=== PATIENT | female | born 2000 | race African-American/Black ===

== ENCOUNTER 2025-03-22 11:24 | Emergency (ER) | payer OTHER, SELFPAY ==
[~2025-03-22] VITALS: Ht 160 cm; Wt 67.3 kg
[2025-03-22] MEDS ORDERED: AMIT10TA11 PO (11:43)
[2025-03-22] MEDS ORDERED: SUMA100T2 PO (11:43)
[2025-03-22] MEDS ORDERED: HYDR-643 PO (11:43)
[2025-03-22] MEDS ORDERED: HOME MED LIST COMPLETE! XX SCH (12:25)
[2025-03-22] MEDS: NS (Normal Saline) 0.9% 1,000 ML IV ONE (12:40)
[2025-03-22] MEDS: KETOROLAC 30 MG/ML 1 ML VIAL IV ONE (12:42)
[2025-03-22] MEDS: ACETAMINOPHEN 500 MG TAB PO ONE (12:42)
[2025-03-22] MEDS: diphenhydrAMINE 50 MG/ML VIAL IV ONE (12:43)
[2025-03-22 12:44] LABS: BASO # 0.0 10^3/uL (0.0-0.2); BASO % 0.5 % (0.0-1.0); EOS # 0.0 10^3/uL (0.0-0.5); EOS % 1.0 % (0.0-3.0); LYMPH # 1.1 10^3/uL (1.5-5.0); LYMPH % 26.6 % (24.0-44.0); MONO # 0.4 10^3/uL (0.0-0.8); MONO % 9.2 % (2.0-8.0); NEUTROPHILS # 2.5 10^3/uL (1.5-8.5); NEUTROPHILS % 62.5 % (36.0-66.0); PLATELET COUNT, AUTOMATED 300 10^3/uL (150-450)
[2025-03-22 13:10] LABS: CALCIUM LEVEL 9.5 MG/DL (8.5-10.1); CARBON DIOXIDE LEVEL 28 MMOL/L (20-31); CHLORIDE LEVEL 105 MMOL/L (98-107); CREATININE FOR GFR 0.86 MG/DL (0.55-1.30); GLOMERULAR FILTRATION RATE > 90.0 (>60); MAGNESIUM LEVEL 1.9 MG/DL (1.8-2.4); POTASSIUM SERUM 4.1 MMOL/L (3.5-5.1); SODIUM LEVEL 142 MMOL/L (136-145)
[2025-03-22 13:12] LABS: FREE T4 0.95 NG/DL (0.89-1.76)
[2025-03-22 13:33] LABS: HCG, SERUM QUALITATIVE NEGATIVE (NEGATIVE)
[2025-03-22 14:05] VITALS: BP 103/60; TEMP 97; O2SAT 99
== END 2025-03-22 15:00 | disposition home or self-care (01) ==
LOC: M ED 11:24
DX: E16.2 Hypoglycemia, unspecified (principal); R55 Syncope and collapse; G43.909 Migraine, unspecified, not intractable, without status migrainosus
CPT/HCPCS: 70450; 73110; 80048; 83735; 84439; 84443; 84703; 85025; 93005; 96361; 96374; 96375; 99284; J1200; J1885; J2765

== ENCOUNTER 2025-03-27 10:59 | Inpatient (IN) | payer OTHER, SELFPAY ==
[~2025-03-27] VITALS: Ht 157.5 cm; Wt 66.8 kg
[~2025-03-27 10:59] MED LIST: AMIT10TA11 PO; HYDR-643 PO; SUMA100T2 PO
[2025-03-27 11:41] LABS: PLATELET COUNT, AUTOMATED 294 10^3/uL (150-450)
[2025-03-27 12:04] LABS: ETHYL ALCOHOL (ETHANOL) 0.004 % (0.000-0.010)
[2025-03-27 12:06] LABS: ALT/SGPT 19 U/L (7.0-40); AST/SGOT 24 U/L (<34); CALCIUM LEVEL 9.6 MG/DL (8.5-10.1); CARBON DIOXIDE LEVEL 28 MMOL/L (20-31); CHLORIDE LEVEL 103 MMOL/L (98-107); CREATININE FOR GFR 0.81 MG/DL (0.55-1.30); GLOMERULAR FILTRATION RATE > 90.0 (>60); POTASSIUM SERUM 3.9 MMOL/L (3.5-5.1); SALICYLATE LEVEL < 3.0 MG/DL (<30); SODIUM LEVEL 140 MMOL/L (136-145)
[2025-03-27 12:14] LABS: AMPHETAMINES LEVEL URINE NEGATIVE (NEGATIVE)
[2025-03-27 12:15] LABS: BARBITURATES URINE NEGATIVE (NEGATIVE); BENZODIAZEPINES URINE NEGATIVE (NEGATIVE); CANNABINOIDS URINE NEGATIVE (NEGATIVE); COCAINE METABOLITE URINE NEGATIVE (NEGATIVE); METHADONE URINE NEGATIVE (NEGATIVE); OPIATES URINE NEGATIVE (NEGATIVE); PHENCYCLIDINE URINE NEGATIVE (NEGATIVE)
[2025-03-27 12:21] LABS: HCG, SERUM QUALITATIVE NEGATIVE (NEGATIVE)
[2025-03-27] MEDS ORDERED: IBUP1TAB6 PO (12:47)
[2025-03-27] MEDS ORDERED: HOME MED LIST COMPLETE! XX SCH (12:50)
[2025-03-27] MEDS: IBUPROFEN 600 MG TAB PO ONE (13:35)
[2025-03-27] MEDS ORDERED: IBUPROFEN 400 MG TAB PO PRN (14:30)
[2025-03-27] MEDS ORDERED: MAALOX 30 ML SUSP *UDC PO PRN (14:30)
[2025-03-27] MEDS ORDERED: traZODone 50 MG TAB PO PRN (14:30)
[2025-03-27] MEDS ORDERED: MOM 30 ML SUSPENSION UDC PO PRN (14:30)
[2025-03-27] MEDS: ACETAMINOPHEN 325 MG TAB PO PRN (15:40)
[2025-03-27 16:26] VITALS: BP 122/81; TEMP 98.1; O2SAT 100
[2025-03-28 06:41] VITALS: BP 129/72; TEMP 97.2; O2SAT 100
== END 2025-03-28 11:47 | disposition home or self-care (01) | DRG 882 ==
LOC: M ED 10:59 → EDBD 10:59 → M ED INP 14:27 → M PSY 15:15
PROVIDERS: ADMIT General Practice; ATTEND Psychiatry & Neurology Psychiatry
DX: F43.23 Adjustment disorder with mixed anxiety and depressed mood (principal); F43.0 Acute stress reaction; Z91.82 Personal history of military deployment